=== PATIENT | female | born 1985 | race Caucasian/White ===

== ENCOUNTER 2021-05-21 07:50 | Emergency (ER) | payer BC ==
[~2021-05-21] VITALS: Ht 170.2 cm; Wt 70.0 kg
[2021-05-21 09:02] LABS: BASOPHILS % 0.7 % (0.0-2.0); HEMATOCRIT. 34.4 % (36.0-48.0); HEMOGLOBIN. 11.8 g/dL (12.0-16.0); LYMPHOCYTES % 23.9 % (20.0-50.0); MEAN CORPUSCULAR HEMOGLOBIN 30.5 pg (28.0-32.0); MEAN CORPUSCULAR VOLUME 88.7 fL (81.0-99.0); MEAN PLATELET VOLUME 9.4 fl (7.4-10.4); MONOCYTES % 6.6 % (2.0-8.0); NEUTROPHILS % 66.8 % (40.0-76.0); PLATELET 168 x1000/uL (130-400); RED BLOOD CELL COUNT 3.88 mill/uL (4.2-5.4)
[2021-05-21 09:04] LABS: CHLORIDE 110 mEq/L (98-107)
[2021-05-21 09:09] LABS: ETHANOL BLOOD 112 mg/dL
[2021-05-21 09:54] LABS: HCG SCREEN NEGATIVE
[2021-05-21 10:10] LABS: CLARITY URINE CLEAR (CLEAR); COLOR URINE YELLOW (YELLOW); KETONES URINE NEGATIVE (NEGATIVE); LEUKOCYTE ESTERASE URINE NEGATIVE (NEGATIVE); NITRITE URINE NEGATIVE (NEGATIVE); OCCULT BLOOD URINE NEGATIVE (NEGATIVE); PH URINE 7.5 (4.5-8.0); PROTEIN URINE NEGATIVE (NEGATIVE); SPECIFIC GRAVITY URINE 1.003 (1.005-1.030); UROBILINOGEN URINE 0.2 E.U./dL (0.2-1.0)
[2021-05-21] MEDS: FLUOXETINE HCL 20MG CAPSULE PO SCH ×2 (10:25→21:39)
[2021-05-21] MEDS: TOPIRAMATE 25MG TABLET PO SCH (10:26)
[2021-05-21 10:34] LABS: *BARBITURATES SCREEN URINE NEGATIVE (NEGATIVE); *BENZODIAZEPINES SCREEN URINE NEGATIVE (NEGATIVE); *COCAINE SCREEN URINE NEGATIVE (NEGATIVE); CANNABINOID URINE SCREEN NEGATIVE (NEGATIVE); OPIATES URINE SCREEN NEGATIVE (NEGATIVE); PHENCYCLIDINE URINE SCREEN NEGATIVE (NEGATIVE)
[2021-05-21 10:35] LABS: *AMPHETAMINES SCREEN URINE NEGATIVE (NEGATIVE); METHADONE URINE SCREEN NEGATIVE (NEGATIVE)
[2021-05-21] MEDS ORDERED: SODIUM CHLORIDE 0.9% 1,000 ML IV ONE (13:00)
[2021-05-21] MEDS ORDERED: TOPIRAMATE 25MG TABLET PO SCH (21:00)
[2021-05-21] MEDS ORDERED: TRAZODONE HCL 50MG TABLET PO SCH (21:00)
[2021-05-22] MEDS: TOPIRAMATE 25MG TABLET PO SCH (09:00)
[2021-05-22 18:52] VITALS: BP 112/78
== END 2021-05-22 19:13 | disposition short-term general hospital (02) ==
LOC: ER 07:50
DX: T43.211A Poisoning by selective serotonin and norepinephrine reuptake inhibitors, accidental (unintentional), initial encounter (principal); T14.91XA Suicide attempt, initial encounter; X58.XXXA Exposure to other specified factors, initial encounter; F31.9 Bipolar disorder, unspecified; Z20.822 Contact with and (suspected) exposure to COVID-19
CPT/HCPCS: 36415; 80053; 80305; 80320; 81003; 81025; 82962; 84703; 85025; 96360; 99285; C9803; J7030; U0003; U0005; G0480